=== PATIENT | female | born 2000 | race Caucasian/White ===

== ENCOUNTER 2022-07-12 12:12 | Inpatient (IN) | payer BC ==
[~2022-07-12] VITALS: Ht 165.1 cm; Wt 106.8 kg
[2022-07-12 13:03] LABS: BASOPHILS % (AUTO) 0.2 % (0-1); EOSINOPHILS # (AUTO) 0.1 X10'3 (0-0.9); EOSINOPHILS % (AUTO) 1.4 % (0-6); HEMATOCRIT 42.2 % (35.0-45.0); HEMOGLOBIN 13.9 g/dl (12.0-16.0); LYMPHOCYTES # (AUTO) 2.3 X10'3 (1.1-4.8); LYMPHOCYTES % (AUTO) 30.6 % (21-51); MEAN CORPUSCULAR HEMOGLOBIN 29.1 PG (27.0-31.0); MEAN CORPUSCULAR HGB CONC 33.1 g/dL (33.0-36.5); MEAN CORPUSCULAR VOLUME 87.9 FL (78-98); MEAN PLATELET VOLUME 9.1 FL (7.4-10.4); MONOCYTES # (AUTO) 0.5 X10'3 (0-0.9); MONOCYTES % (AUTO) 6.5 % (2-12); NEUTROPHILS # (AUTO) 4.6 X10'3 (1.8-7.7); NEUTROPHILS % (AUTO) 61.3 % (42-75); PLATELET COUNT 270 X10'3 (140-440); RED CELL DISTRIBUTION WIDTH 13.5 % (11.5-14.5); WHITE BLOOD COUNT 7.5 X10'3 (4.5-11.0)
[2022-07-12 13:04] LABS: CLARITY,URINE CLOUDY (Clear); COLOR,URINE YELLOW (Yellow); GLUCOSE, URINE 100 mg/dl (Neg); KETONES,URINE 40 mg/dl (Neg); LEUKOCYTE ESTERASE ,URINE NEGATIVE (Neg); NITRITES, URINE NEGATIVE (Neg); OCCULT BLOOD,URINE MODERATE (Neg); PH,URINE 5.5 (4.8-8.0); PROTEIN,URINE TRACE mg/dl (Neg)
[2022-07-12 13:06] LABS: URINE HCG NEGATIVE (NEG)
[2022-07-12 13:07] LABS: UA COLLECTION TYPE CLN CATCH MIDSTREAM
[2022-07-12 13:20] LABS: ALANINE AMINOTRANSFERASE 529 U/L (12-78); ALBUMIN 4.4 G/DL (3.4-5.0); ALKALINE PHOSPHATASE 302 IU/L (46-116); ANION GAP 10 (8-16); ASPARTATE AMINO TRANSFERASE 212 U/L (10-37); BILIRUBIN,TOTAL 5.4 MG/DL (0.1-1.0); BLOOD UREA NITROGEN 13 MG/DL (7-18); BUN/CREATININE RATIO 17.8 (6.6-38.0); CALCIUM 9.9 MG/DL (8.5-10.1); CHLORIDE 102 MMOL/L (99-107); CREATININE 0.73 MG/DL (0.40-0.90); GLUCOSE 99 MG/DL (70-104); LIPASE 93 U/L (73-393); SODIUM 140 MMOL/L (135-145); eGFR > 90 ML/MIN
[2022-07-12 13:23] LABS: BACTERIA,URINE FEW /HPF (Neg); MUCUS STRANDS MODERATE /LPF (Neg); SQUAMOUS EPITHELIAL CELL,UR FEW /LPF (FEW); TOTAL PROTEIN 8.7 G/DL (6.4-8.2); WBC,URINE 0-4 /HPF (0-4)
[2022-07-12] MEDS ORDERED: ondansetron/PF 4mg/2ml inj IV ONE (14:15)
[2022-07-12] MEDS ORDERED: morphine 4 MG/ML inj SYRINge IV PRN (14:15)
[2022-07-12] MEDS ORDERED: normal saline 1000ML IV soln IVB ONE (14:15)
[2022-07-12] MEDS ORDERED: OFLO5DRO5 LEFT EAR (15:09)
[2022-07-12] MEDS ORDERED: AMOX-580 PO (15:09)
[2022-07-12] MEDS ORDERED: FAMO40TA58 PO (15:09)
[2022-07-12] MEDS ORDERED: iohexol 300mg/ml 100ml inj. ONE (16:30)
[2022-07-12] MEDS ORDERED: normal saline 1000ml 1,000 ML IV ONE (17:10)
[2022-07-12] MEDS ORDERED: magnesium 4gm in 100ml NS 100 ML IV PRN (18:05)
[2022-07-12] MEDS ORDERED: magnesium hydroxide 30ml (MOM) UD suspension PO PRN (18:05)
[2022-07-12] MEDS ORDERED: acetaminophen 325mg tablet PO PRN (18:05)
[2022-07-12] MEDS ORDERED: bisacodyl 10mg suppository rectal RC PRN (18:05)
[2022-07-12] MEDS ORDERED: potassium Cl 20 mEq SR tablet PO PRN ×2 (18:05)
[2022-07-12] MEDS ORDERED: potassium Cl 40MEQ/1/2NS 520ml 520 ML IV PRN (18:05)
[2022-07-12] MEDS ORDERED: SINCALIDE IV ONE (18:05)
[2022-07-12] MEDS ORDERED: ondansetron 4mg rapidly disintigrating tab PO PRN (18:05)
[2022-07-12] MEDS ORDERED: acetaminophen 650mg rectal suppository RC PRN (18:05)
[2022-07-12] MEDS ORDERED: mag hydrox/Alum hydrox/simeth 30ml oral suspension PO PRN (18:05)
[2022-07-12] MEDS ORDERED: magnesium Cl slow-release 64mg tablet PO PRN (18:05)
[2022-07-12] MEDS ORDERED: NORMAL SALINE IV ONE (18:05)
[2022-07-12] MEDS: normal saline 1000ml 1,000 ML IV SCH (18:37)
[2022-07-12 18:53] LABS: APTT 25 SECONDS (22-32)
[2022-07-12] MEDS: K and/or MAG REPLACEMENT MC SCH (19:50)
[2022-07-12] MEDS: docusate sod 100mg capsule PO SCH (20:00)
--- NOTE | 2022-07-12 20:04 | NUR ---
RECEIVED REPORT FROM KESHIA FAJARDO IN ER. WILL ASSUME CARE WHEN PATIENT ARRIVES ON THE UNIT.
[2022-07-12 20:10] VITALS: BP 109/64
[2022-07-12] MEDS: ondansetron/PF 4mg/2ml inj IV PRN (20:28)
[2022-07-12] MEDS: HYDROmorphone/PF 0.2 MG/ML SYRINGE IV PRN (20:29)
[2022-07-12] MEDS ORDERED: temazepam 15mg capsule PO PRN (21:00)
[2022-07-12 22:00] VITALS: BP 100/47
[2022-07-13] MEDS: normal saline 1000ml 1,000 ML IV SCH ×2 (04:05→14:55)
[2022-07-13 06:00] VITALS: BP 111/56
[2022-07-13 06:14] LABS: BASOPHILS % (AUTO) 0.2 % (0-1); EOSINOPHILS # (AUTO) 0.1 X10'3 (0-0.9); EOSINOPHILS % (AUTO) 1.7 % (0-6); HEMATOCRIT 35.4 % (35.0-45.0); HEMOGLOBIN 11.5 g/dl (12.0-16.0); LYMPHOCYTES % (AUTO) 32.8 % (21-51); MEAN CORPUSCULAR HEMOGLOBIN 28.8 PG (27.0-31.0); MEAN CORPUSCULAR HGB CONC 32.6 g/dL (33.0-36.5); MEAN CORPUSCULAR VOLUME 88.4 FL (78-98); MEAN PLATELET VOLUME 9.5 FL (7.4-10.4); MONOCYTES # (AUTO) 0.5 X10'3 (0-0.9); NEUTROPHILS # (AUTO) 3.5 X10'3 (1.8-7.7); NEUTROPHILS % (AUTO) 57.3 % (42-75); PLATELET COUNT 216 X10'3 (140-440)
[2022-07-13 06:27] LABS: ALANINE AMINOTRANSFERASE 384 U/L (12-78); ALBUMIN 3.3 G/DL (3.4-5.0); ALKALINE PHOSPHATASE 241 IU/L (46-116); ANION GAP 10 (8-16); ASPARTATE AMINO TRANSFERASE 130 U/L (10-37); BILIRUBIN,TOTAL 3.1 MG/DL (0.1-1.0); BLOOD UREA NITROGEN 13 MG/DL (7-18); BUN/CREATININE RATIO 19.4 (6.6-38.0); CHLORIDE 108 MMOL/L (99-107); CREATININE 0.67 MG/DL (0.40-0.90); GLUCOSE 76 MG/DL (70-104); MAGNESIUM 1.9 MG/DL (1.5-2.4); SODIUM 142 MMOL/L (135-145); TOTAL PROTEIN 6.7 G/DL (6.4-8.2); eGFR > 90 ML/MIN
--- NOTE | 2022-07-13 06:32 | NUR ---
Problems reprioritized. Patient report given, questions answered & plan of care reviewed with BRANDO TAVAREZ.
--- NOTE | 2022-07-13 06:57 | NUR ---
Patient in room [facility]. I have received report from Kristi FAJARDO and had the opportunity to ask questions and assume patient care. Pt awake, able to verbalize needs, breathing even and unlabored on room air. Pt verbalize pain and nausea, pt requested medications to alieviate symptoms.
[2022-07-13] MEDS: HYDROmorphone/PF 0.2 MG/ML SYRINGE IV PRN ×3 (07:17→22:37)
[2022-07-13] MEDS: ondansetron/PF 4mg/2ml inj IV PRN ×2 (07:17→13:20)
[2022-07-13] MEDS: docusate sod 100mg capsule PO SCH ×2 (08:00→20:00)
[2022-07-13] MEDS: K and/or MAG REPLACEMENT MC SCH ×2 (08:00→19:36)
[2022-07-13] MEDS ORDERED: ringers solution, lacted 1,000 ML IV ONE (09:30)
[2022-07-13 10:00] VITALS: BP 109/51
--- NOTE | 2022-07-13 12:55 | NUR ---
Pt Left for MRI Procedure 1024
--- NOTE | 2022-07-13 13:15 | NUR ---
Pt arrived from Procedure and reporting nausea.
--- NOTE | 2022-07-13 17:14 | NUR ---
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
[2022-07-13 18:00] VITALS: BP 126/71
--- NOTE | 2022-07-13 18:44 | NUR ---
Problems reprioritized. Patient report given, questions answered & plan of care reviewed with Prudence RN.
--- NOTE | 2022-07-13 19:14 | NUR ---
Patient in room [facility]. I have received report from BRANDO TAVAREZ and had the opportunity to ask questions and assume patient care.
[2022-07-13 22:00] VITALS: BP 107/63
[2022-07-14] VITALS (19 sets, daily range): BP systolic 110–151; BP diastolic 53–100
[2022-07-14] MEDS: normal saline 1000ml 1,000 ML IV SCH ×3 (00:21→19:28)
[2022-07-14] MEDS ORDERED: LORazepam 2 mg/ml vial IV ONE (06:00)
--- NOTE | 2022-07-14 06:12 | NUR ---
Problems reprioritized. Patient report given, questions answered & plan of care reviewed with SHEILA RN.
[2022-07-14] MEDS ORDERED: BUPIVAcaine 0.5% inj/PF 30 ML ONE (07:07)
[2022-07-14 07:25] LABS: BASOPHILS % (AUTO) 0.2 % (0-1); EOSINOPHILS # (AUTO) 0.1 X10'3 (0-0.9); EOSINOPHILS % (AUTO) 2.6 % (0-6); HEMATOCRIT 36.7 % (35.0-45.0); HEMOGLOBIN 12.2 g/dl (12.0-16.0); LYMPHOCYTES # (AUTO) 1.8 X10'3 (1.1-4.8); LYMPHOCYTES % (AUTO) 32.6 % (21-51); MEAN CORPUSCULAR HEMOGLOBIN 29.1 PG (27.0-31.0); MEAN CORPUSCULAR HGB CONC 33.1 g/dL (33.0-36.5); MEAN PLATELET VOLUME 9.5 FL (7.4-10.4); MONOCYTES # (AUTO) 0.4 X10'3 (0-0.9); MONOCYTES % (AUTO) 7.9 % (2-12); NEUTROPHILS # (AUTO) 3.2 X10'3 (1.8-7.7); NEUTROPHILS % (AUTO) 56.7 % (42-75); PLATELET COUNT 226 X10'3 (140-440); RED BLOOD COUNT 4.17 X10'6 (4.20-5.60); RED CELL DISTRIBUTION WIDTH 13.5 % (11.5-14.5); WHITE BLOOD COUNT 5.6 X10'3 (4.5-11.0)
[2022-07-14 07:31] LABS: ALANINE AMINOTRANSFERASE 384 U/L (12-78); ALBUMIN 3.4 G/DL (3.4-5.0); ALBUMIN/GLOBULIN RATIO 0.9 (1.1-1.5); ALKALINE PHOSPHATASE 279 IU/L (46-116); ANION GAP 7 (8-16); ASPARTATE AMINO TRANSFERASE 165 U/L (10-37); BILIRUBIN,TOTAL 4.5 MG/DL (0.1-1.0); BLOOD UREA NITROGEN 8 MG/DL (7-18); BUN/CREATININE RATIO 11.6 (6.6-38.0); CALCIUM 8.8 MG/DL (8.5-10.1); CHLORIDE 103 MMOL/L (99-107); CREATININE 0.69 MG/DL (0.40-0.90); GLUCOSE 96 MG/DL (70-104); MAGNESIUM 1.6 MG/DL (1.5-2.4); SODIUM 136 MMOL/L (135-145); TOTAL CARBON DIOXIDE 25.8 MMOL/L (24-32); eGFR > 90 ML/MIN
[2022-07-14] MEDS ORDERED: fentaNYL/PF 50MCG/1 ML 2ML syringe IV PRN ×2 (07:55)
[2022-07-14] MEDS ORDERED: morphine 4 MG/ML inj SYRINge IV PRN (07:55)
[2022-07-14] MEDS ORDERED: morphine 2 MG/ML inj. syringe IV PRN (07:55)
[2022-07-14] MEDS ORDERED: hydrALAZINE 20mg/ml inj. IV PRN (07:55)
[2022-07-14] MEDS ORDERED: ringers solution, lacted 1,000 ML IV SCH (07:55)
[2022-07-14] MEDS ORDERED: labetalol 20mg/4ml (5mg/ml) syringe IV PRN (07:55)
[2022-07-14] MEDS ORDERED: ondansetron/PF 4mg/2ml inj IV PRN (07:55)
[2022-07-14] MEDS: docusate sod 100mg capsule PO SCH ×2 (07:59→19:35)
[2022-07-14] MEDS: K and/or MAG REPLACEMENT MC SCH ×2 (08:00→19:36)
[2022-07-14] MEDS ORDERED: neostigmine methylsulfate 1 MG/ML 10ml vial ONE (11:10)
[2022-07-14] MEDS ORDERED: LIDOcaine 2% (20mg/ml) 5ml vial ONE (11:10)
[2022-07-14] MEDS ORDERED: sevoflurane 250ml liquid IH ONE (11:10)
[2022-07-14] MEDS ORDERED: dexamethasone sod phosphate 10mg/ml inj ONE (11:10)
[2022-07-14] MEDS ORDERED: ondansetron/PF 4mg/2ml inj ONE (11:18)
[2022-07-14] MEDS ORDERED: glycopyrrolate 0.2mg/ml inj ONE (11:18)
[2022-07-14] MEDS ORDERED: propofol inj 20 ML IV ONE (11:18)
[2022-07-14] MEDS ORDERED: rocuronium 10mg/ml inj IV ONE (11:18)
[2022-07-14] MEDS ORDERED: fentaNYL/PF 50MCG/1 ML 2ML syringe ONE (11:20)
[2022-07-14] MEDS ORDERED: midazolam 1 mg/ML 2ml injection ONE (11:21)
[2022-07-14] MEDS ORDERED: ceFAZolin 1000mg inj ONE (11:29)
[2022-07-14] MEDS ORDERED: BUPIVAcaine 0.5% inj/PF 30 ml vial IJ ONE (12:03)
--- NOTE | 2022-07-14 12:15 | NUR ---
Received from OR via SURGICAL BED , accompanied by Anesthesiologist JASMIN and report given by Anesthesiolgist. PATIENT WITH 20G PIV IN RIGHT UE RUNNING LR AT 100. DENIES PAIN AT THIS TIME. 4 ABDOMINAL LAP SITES PRESENT. PATIENT WITH 4 LAP SITES TO ABDOMEN THAT ARE CDI. 10L MASK ON WITH 100% SATURAIONS AT THIS TIME. Addendum: 07/14/22 at 1239 by Jorje Rodriguez RN, RN Amended: Links added.
--- NOTE | 2022-07-14 13:05 | NUR ---
Report called to receiving nurse. Transferred via SURGICAL BED WITH 2 RINGS TAPED ON LEFT RING FINGER.NO OTHER Belongings . Special Issues communicated to receiving nurse SHEILA FAJARDO.TESSA. PATIENT STATING PAIN UPON ARRIVAL. MEDICATED EARLIER WITH + RESULTS. RN TO REASSESS AND TREAT PAIN. CARE TAKEN OVER BY SHEILA WHO WAS THERE TO ASSESS AND TAKE PATIENT ASSIGNMENT. Addendum: 07/14/22 at 1325 by Jorje Rodriguez RN, RN Amended: Links added.
[2022-07-14] MEDS: HYDROmorphone inj. 0.5 MG/0.5 ML DISP.SYRIN IV PRN ×2 (14:30→19:35)
--- NOTE | 2022-07-14 18:26 | NUR ---
Problems reprioritized. Patient report given, questions answered & plan of care reviewed with Aliza FAJARDO.
[2022-07-15] MEDS: HYDROmorphone inj. 0.5 MG/0.5 ML DISP.SYRIN IV PRN (01:52)
[2022-07-15 02:00] VITALS: BP 118/74
[2022-07-15] MEDS: normal saline 1000ml 1,000 ML IV SCH (03:03)
--- NOTE | 2022-07-15 06:17 | NUR ---
Problems reprioritized. Patient report given, questions answered & plan of care reviewed with SCOTTY BACON.
[2022-07-15] MEDS ORDERED: HYDROcodone/acetaminophen 5mg/325mg tablet PO PRN (06:50)
--- NOTE | 2022-07-15 06:55 | NUR ---
Patient in room [facility]. I have received report from Aliza FAJARDO and had the opportunity to ask questions and assume patient care.
[2022-07-15 07:07] VITALS: BP 122/79
[2022-07-15 07:15] LABS: BASOPHILS % (AUTO) 0 % (0-1); EOSINOPHILS % (AUTO) 0 % (0-6); HEMATOCRIT 38.5 % (35.0-45.0); HEMOGLOBIN 12.8 g/dl (12.0-16.0); LYMPHOCYTES # (AUTO) 1.3 X10'3 (1.1-4.8); LYMPHOCYTES % (AUTO) 10.7 % (21-51); MEAN CORPUSCULAR HGB CONC 33.3 g/dL (33.0-36.5); MEAN CORPUSCULAR VOLUME 87.1 FL (78-98); MEAN PLATELET VOLUME 9.6 FL (7.4-10.4); MONOCYTES # (AUTO) 0.8 X10'3 (0-0.9); MONOCYTES % (AUTO) 6.5 % (2-12); NEUTROPHILS # (AUTO) 10.4 X10'3 (1.8-7.7); NEUTROPHILS % (AUTO) 82.8 % (42-75); PLATELET COUNT 240 X10'3 (140-440); RED BLOOD COUNT 4.42 X10'6 (4.20-5.60); RED CELL DISTRIBUTION WIDTH 13.4 % (11.5-14.5); WHITE BLOOD COUNT 12.5 X10'3 (4.5-11.0)
[2022-07-15] MEDS: docusate sod 100mg capsule PO SCH (08:05)
[2022-07-15 09:10] LABS: ALANINE AMINOTRANSFERASE 540 U/L (12-78); ALBUMIN 3.6 G/DL (3.4-5.0); ALBUMIN/GLOBULIN RATIO 0.9 (1.1-1.5); ALKALINE PHOSPHATASE 352 IU/L (46-116); ANION GAP 9 (8-16); ASPARTATE AMINO TRANSFERASE 286 U/L (10-37); BILIRUBIN,TOTAL 3.4 MG/DL (0.1-1.0); BLOOD UREA NITROGEN 9 MG/DL (7-18); BUN/CREATININE RATIO 12.7 (6.6-38.0); CALCIUM 9.4 MG/DL (8.5-10.1); CHLORIDE 102 MMOL/L (99-107); CREATININE 0.71 MG/DL (0.40-0.90); GLUCOSE 146 MG/DL (70-104); MAGNESIUM 1.8 MG/DL (1.5-2.4); POTASSIUM 4.1 MMOL/L (3.5-5.1); SODIUM 136 MMOL/L (135-145); TOTAL CARBON DIOXIDE 24.8 MMOL/L (24-32); TOTAL PROTEIN 7.7 G/DL (6.4-8.2); eGFR > 90 ML/MIN
[2022-07-15] MEDS: K and/or MAG REPLACEMENT MC SCH (09:17)
[2022-07-15] MEDS ORDERED: ACET-1008 PO (09:34)
[2022-07-15] MEDS ORDERED: IBUP-1985 PO (09:34)
[2022-07-15 10:00] VITALS: BP 120/75
[2022-07-15] MEDS ORDERED: CIPR-202 PO (10:02)
--- NOTE | 2022-07-15 10:54 | NUR ---
Received Discharge orders, reviewed with Patient and spouse. understanding verbalized. IV removed, cannula intact. patient escorted to lobby with belongings and spouse by staff.
[2022-07-16 08:01] LABS: HEP A AB, IGM Negative (Negative)
== END 2022-07-15 10:45 | disposition home or self-care (01) | DRG 418 ==
LOC: ER 12:13 → CANBEDREQ 14:35 → ED HOLD 18:13 → EDBEDREQ 18:52 → SUR 3N 20:12
PROVIDERS: ADMIT Family Medicine; ATTEND Family Medicine
PROC: BW211ZZ Computerized Tomography (CT Scan) of Abdomen and Pelvis using Low Osmolar Contrast (ICD-10-PCS; 2022-07-12)
PROC: 0FT44ZZ Resection of Gallbladder, Percutaneous Endoscopic Approach (ICD-10-PCS; principal; 2022-07-14 11:10)
DX: K80.00 Calculus of gallbladder with acute cholecystitis without obstruction (principal); K82.1 Hydrops of gallbladder; E66.9 Obesity, unspecified; R79.89 Other specified abnormal findings of blood chemistry; Z79.899 Other long term (current) drug therapy; Z68.39 Body mass index [BMI] 39.0-39.9, adult
CPT/HCPCS: 96361; 96374; 99285; Z7506; Z7508; 36415; 74176; 74181; 76700; 80053; 81001; 81025; 82948; 83605; 83690; 83735; 84145; 85025; 85610; 85730; 86705; 86709; 86803; 87081; 87522; A4215; A4618; A7000; G0378; J0690; J1100; J1170; J2250; J2270; J2405; J2704; J2710; J3010; J3490; J7030; J7120; Q9967; S0020